=== PATIENT | male | born 1980 | race Caucasian/White ===

== ENCOUNTER 2021-12-30 03:00 | Outpatient (CLI) | payer BC, SELFPAY ==
[2021-12-30 11:21] LABS: Carboxyhemoglobin 1.7 %
[2021-12-30 11:24] LABS: Abs Immature Grans 0.02 10^3/uL (0.0-0.06); Absolute Basophil Count 0.03 10^3/uL (0.0-0.2); Absolute Eosinophil Count 0.07 10^3/uL (0.0-0.7); Absolute Lymphocyte Count 1.66 10^3/uL (1.2-3.4); Absolute Monocyte Count 0.49 10^3/uL (0.1-0.8); Absolute Neutrophil Count 4.09 10^3/uL (1.2-6.7); Basophils % 0.5; Eosinophils % 1.1; HGB 14.7 g/dL (13.5-17.5); Immature Grans % 0.3; Lymphocytes % 26.1; MCV 90.7 fL (80-95); Monocytes % 7.7; Neutrophils % 64.3; Nucleated RBC 0 %; RBC 5.07 10^6/uL (4.36-5.78); RDW 13.1 % (11.8-14.1); RDW-SD 43.6 fL; WBC 6.36 10^3/uL (4.4-10.8)
[2021-12-30 11:40] LABS: Diff Comment Diff Reviewed
[2021-12-30 11:41] LABS: RBC Morphology Normal
[2021-12-30 13:02] LABS: ALT 54 U/L (16-63); AST 33 U/L (15-37); Albumin 3.9 g/dL (3.4-5.0); Alkaline Phosphatase 43 U/L (46-116); BUN 24 mg/dL (7-18); Bilirubin, Total 0.3 mg/dL (0.2-1.0); CREATININE 1.1 mg/dL (0.70-1.30); Calcium 9.3 mg/dL (8.5-10.1); Calculated LDL 120 mg/dL (<100); Chloride 103 mmol/L (98-107); Cholesterol 201 mg/dL (<200); Glucose 104 mg/dL (74-106); HDL Cholesterol 58 mg/dL (40-60); Potassium 4.5 mmol/L (3.5-5.1); Sodium 138 mmol/L (136-145); Total Protein 7.2 g/dL (6.4-8.2); Triglyceride 115 mg/dL (<150)
== END 2021-12-30 03:01 | disposition home or self-care (01) ==
LOC: LBO 03:00
PROVIDERS: PCP Family Medicine; Visit Provider Family Medicine
DX: Z13.6 Encounter for screening for cardiovascular disorders (principal); Z77.29 Contact with and (suspected) exposure to other hazardous substances; I10 Essential (primary) hypertension
CPT/HCPCS: 36415; 80053; 80061; 82375; 85025

== ENCOUNTER 2023-05-07 13:49 | Emergency (ER) | payer OTHER, SELFPAY ==
[2023-05-07] VITALS (19 sets, daily range): BP systolic 109–132; BP diastolic 67–95; PULSE 47–82; RESP 8–22; TEMP 36.1; O2SAT 97–100
--- NOTE | 2023-05-07 14:00 | RT.EKG_ITS ---
APPROVED REPORT Exam: Resting ECG Reason for Exam: dizziness Patient Location: E HR:46 bpm ECG Measurements Heart Rate 46 AXIS IL 203 P 50 QRSd 100 QRS 70 QT 472 T 38 QTc 413 Conclusion Slow sinus arrhythmia...V-rate 40- 55, mean< 60 sinus bradycardia, normal axis, upsloping J point consider early repol
[2023-05-07 14:40] LABS: Abs Immature Grans 0.02 10^3/uL (0.0-0.06); Absolute Basophil Count 0.04 10^3/uL (0.0-0.2); Absolute Lymphocyte Count 1.48 10^3/uL (1.2-3.4); Absolute Monocyte Count 0.59 10^3/uL (0.1-0.8); Absolute Neutrophil Count 4.47 10^3/uL (1.2-6.7); Basophils % 0.6; Eosinophils % 1.5; HCT 46.5 % (40.0-50.0); HGB 15.7 g/dL (13.5-17.5); Immature Grans % 0.3; Lymphocytes % 22.1; MCH 29.6 pg (27.0-33.0); MCHC 33.8 % (32.0-36.0); MCV 88 fL (80-95); MPV 10.8 fL (8.0-11.0); Monocytes % 8.8; Neutrophils % 66.7; Platelet Count 181 10^3/uL (130-400)
[2023-05-07 15:03] LABS: ALT 50 U/L (16-63); AST 52 U/L (15-37); Alkaline Phosphatase 42 U/L (46-116); Anion Gap 9.9 mmol/L (3-11); BUN 25 mg/dL (7-18); Bilirubin, Total 0.4 mg/dL (0.2-1.0); CO2 27.1 mmol/L (21.0-32.0); CREATININE 1.1 mg/dL (0.70-1.30); Calcium 9.3 mg/dL (8.5-10.1); Chloride 106 mmol/L (98-107); Estimated GFR 86.49 (mL/min/1.73m2); Glucose 145 mg/dL (74-106); Lipase 38 U/L (16-77); Magnesium 1.9 mg/dL (1.8-2.4); Potassium 3.6 mmol/L (3.5-5.1); Sodium 143 mmol/L (136-145); Troponin I < 50 ng/L (<or=60)
[2023-05-07] MEDS: Normal Saline 1,000 ML 1000 ML IV (15:30)
--- NOTE | 2023-05-07 15:30 | ED.GENADUL_ITS ---
Discharge Plan Disposition Patient Disposition: Home Condition: Improving Discharge Details Chief Complaint: Nausea/Vomit/Diar Clinical Impression: Near syncope, Dizziness Primary Care Provider: Steven Farnsworth ED Provider: Davi Alvarez Home Meds and New Rx's Prescriptions: No Action No Known Home Meds Discharge Instructions Instructions: Near Syncope (ED), Dizziness (ED) Additional Instructions: Please follow-up with your primary care physician. Please return to the emergency department for any worsening symptoms Medical Decision Making I [id number] male presents with presyncope/dizzy sensation in the setting of standing at work, episode of nausea and vomiting; no chest pain or shortness of breath afebrile nontoxic EKG sinus bradycardia without ischemic changes; resolved symptoms before arrival. 2 through 12 intact, alert oriented normal speech, 5 out of 5 strength upper and lower extremities, no ataxia no pronator drift. Consider resolved peripheral vertigo versus orthostatic hypotension versus foodborne illness versus GI viral illness low suspicion for ACS PE or aortic pathology. Low suspicion for CVA. Given resolution of symptoms normal labs and imaging patient will be discharged home. Patient received Zofran 1 L of normal saline and meclizine. HPI General Date/Time Provider Initiated Documentation: 05/07/23 14:05 . HPI Narrative: 42-year-old male presents after experiencing lightheadedness nausea vomiting and dizziness while standing at work before arrival, no chest pain shortness of breath weakness or change in speech. Reading a slight sensation of spinning and a sensation of presyncope. Has had similar events in the past specifically within the last couple years during an episode of gastroenteritis. Already feeling better upon arrival. No recent travel no recent hospitalization no history of thromboembolic disease or cardiovascular disease Related Data Home Medications Medication Instructions Recorded Confirmed Unknown [No Known Home Meds] 01/01/22 05/07/23 Allergies Allergy/AdvReac Type Severity Reaction Status Date / Time No Known Allergies Allergy Verified 01/17/22 14:04 General Stated Complaint: Nausea/Vomit/Diar ARTI: 3 Review of Systems Narrative: Review of Systems Constitutional: negative Eyes: negative ENT: negative Cardiovascular: Presyncope Respiratory: negative Gastrointestinal: negative : negative Musculoskeletal: negative Skin: negative Neurologic: Dizziness Psych: negative PFSH All Active Problems (Updated 05/07/23 @ 15:35 by Davi Alvarez MD) Near syncope (Acute) Dizziness (Acute) Hyperlipidemia (Acute) Social History Smoking risk assessment performed?: No Exam Narrative Exam Narrative: Physical Examination General: alert, awake, cooperative, resting comfortably, no acute distress HEENT: normocephalic, atraumatic; PERRL, EOM intact, conjunctiva normal; no nasal discharge; moist mucous membranes, oral and pharyngeal mucosa normal, tolerating secretions Neck: supple, trachea midline; full ROM Chest: normal to inspection Respiratory: normal respiratory effort, speaking in full sentences, clear to auscultation, no wheezing, rales or rhonchi Cardiac: regular rate, regular rhythm, S1S2 intact, no murmurs rubs or gallops GI: abdomen soft, non-tender, non-distended; no palpable mass or he patosplenomegaly Skin: no lesions, rashes or trauma appreciated Neuro: AAOx3, normal speech, moving all extremities Psych: Appropriate mood and affect Course Vital Signs Vital signs: Vital Signs Temperature 36.1 C L 05/07/23 13:55 Pulse 82 05/07/23 13:55 Respiratory Rate 18 05/07/23 13:55 Blood Pressure 132/84 05/07/23 13:55 Pulse Oximetry 99 05/07/23 13:55 Temperature 36.1 C L 05/07/23 13:55 Temperature Source Skin 05/07/23 13:55 Pulse 52 L 05/07/23 14:22 Pulse 60 05/07/23 14:22 Respiratory Rate 19 05/07/23 14:22 Respiratory Effort Normal 05/07/23 14:29 Blood Pressure 121/74 05/07/23 14:22 Blood Pressure Mean 86 05/07/23 14:22 Pulse Oximetry 100 05/07/23 14:22 Oxygen Delivery Method Room Air 05/07/23 13:55 Oxygen Flow Rate 0 05/07/23 13:55 Pain Level 0 05/07/23 13:55 Lab/Test Results Lab/Test Results: Laboratory Tests Range/Units 05/07/23 05/07/23 14:30 14:30 WBC (4.4-10.8) 10^3/uL 6.70 RBC (4.36-5.78) 10^6/uL 5.30 Hgb (13.5-17.5) g/dL 15.7 Hct (40.0-50.0) % 46.5 MCV (80-95) fL 88 MCH (27.0-33.0) pg 29.6 MCHC (32.0-36.0) % 33.8 RDW (11.8-14.1) % 13.0 Plt Count (130-400) 10^3/uL 181 MPV (8.0-11.0) fL 10.8 Immature Gran % 0.3 Neutrophils % 66.7 Lymphocytes % 22.1 Monocytes % 8.8 Eosinophils % 1.5 Basophils % 0.6 Nucleated RBC % (0.0-0.3) % 0.0 Absolute Neutrophils (1.2-6.7) 10^3/uL 4.47 Absolute Lymphocytes (1.2-3.4) 10^3/uL 1.48 Absolute Monocytes (0.1-0.8) 10^3/uL 0.59 Absolute Eosinophils (0.0-0.7) 10^3/uL 0.10 Absolute Basophils (0.0-0.2) 10^3/uL 0.04 Sodium (136-145) mmol/L 143 Potassium (3.5-5.1) mmol/L 3.6 Chloride (98-107) mmol/L 106 Carbon Dioxide (21.0-32.0) mmol/L 27.1 Anion Gap (3-11) mmol/L 9.9 BUN (7-18) mg/dL 25 H Creatinine (0.70-1.30) mg/dL 1.1 Est GFR (CKD-EPI 2020) (mL/min/1.73m2) 86.49 Glucose (74-106) mg/dL 145 H Calcium (8.5-10.1) mg/dL 9.3 Magnesium (1.8-2.4) mg/dL 1.9 Total Bilirubin (0.2-1.0) mg/dL 0.4 AST (15-37) U/L 52 H ALT (16-63) U/L 50 Alkaline Phosphatase (46-116) U/L 42 L Troponin I (<or=60) ng/L < 50 Total Protein (6.4-8.2) g/dL 8.0 Albumin (3.4-5.0) g/dL 4.0 Lipase (16-77) U/L 38
== END 2023-05-07 16:20 | disposition home or self-care (01) ==
LOC: ER 16:11
PROVIDERS: Emergency Provider Emergency Medicine; PCP Nurse Practitioner Family
DX: R42 Dizziness and giddiness (principal); R55 Syncope and collapse
CPT/HCPCS: 80053; 83690; 93005; 96361; 96374; 99284; 83735; 84484; 85025; 93010